=== PATIENT | male | born 1995 | race Caucasian/White ===

== ENCOUNTER 2021-02-25 12:09 | Emergency (ER) | payer OTHER ==
[~2021-02-25] VITALS: Ht 190.5 cm; Wt 82.0 kg
[2021-02-25 12:52] VITALS: BP 134/85
[2021-02-25] MEDS ORDERED: proparacaine 0.5% ophthalmic drops 15ml EACHEYE ONE ×2 (13:10)
[2021-02-25] MEDS ORDERED: TOBR5DRO2 RIGHTEYE (13:18)
== END 2021-02-25 13:53 | disposition home or self-care (01) ==
LOC: ER 12:09
DX: S05.01XA Injury of conjunctiva and corneal abrasion without foreign body, right eye, initial encounter (principal); H57.11 Ocular pain, right eye; Z98.890 Other specified postprocedural states; Z79.2 Long term (current) use of antibiotics; X58.XXXA Exposure to other specified factors, initial encounter; Y93.89 Activity, other specified; Y92.89 Other specified places as the place of occurrence of the external cause; Y99.8 Other external cause status
CPT/HCPCS: 99283